=== PATIENT | male | born 1955 | race Hispanic/Latino ===

== ENCOUNTER → 2021-03-31 | Outpatient (CLI) | payer BC | END | disposition home or self-care (01) | LOC: OIH 15:42 | PROVIDERS: ATTEND Internal Medicine | DX: R07.9 Chest pain, unspecified (principal) | CPT/HCPCS: 71046 ==

== ENCOUNTER 2023-12-13 11:40 | Observation (INO) | payer BC, OTHER ==
[~2023-12-13] VITALS: Ht 165.1 cm; Wt 98.5 kg
[2023-12-13 12:58] LABS: BASOPHILS # (AUTO) 0.02 K/uL (0.00-0.20); BASOPHILS % (AUTO) 0.2 % (0.0-5.0); HEMATOCRIT 45.5 % (42-54); IMMATURE GRANULOCYTE ABSOLUTE 0.08 K/uL (0-1); LYMPHOCYTES # (AUTO) 1.6 K/uL (1.0-4.8); LYMPHOCYTES % (AUTO) 14.5 % (21.0-51.0); MEAN CORPUSCULAR HGB CONC 34.7 g/dL (32.0-36.0); MEAN CORPUSCULAR VOLUME 86.3 fL (79-99); MONOCYTES # (AUTO) 0.6 K/uL (0.1-1.0); MONOCYTES % (AUTO) 5.7 % (3.0-13.0); NEUTROPHILS # (AUTO) 8.8 K/uL (1.8-7.7); NEUTROPHILS % (AUTO) 78.9 % (40.0-77.0); PLATELET COUNT (AUTO) 276 K/uL (130-400); RED BLOOD CELL COUNT(AUTO) 5.27 MIL/uL (4.50-6.20); RED CELL DISTRIBUTION WIDTH 13.1 % (11.0-15.5); WHITE BLOOD COUNT (AUTO) 11.2 K/uL (4.8-10.8)
[2023-12-13 13:09] LABS: INR <= 0.93 (0.85-1.15); PROTHROMBIN TIME 10.8 SEC (9.6-11.6)
[2023-12-13 13:10] LABS: PARTIAL THROMBOPLASTIN TIME 27.6 SEC (26.3-35.5)
[2023-12-13 13:11] LABS: ALBUMIN 4.6 g/dL (3.5-5.0); BILIRUBIN,TOTAL 0.5 mg/dL (0.2-1.0); CREATININE 1.5 mg/dL (0.5-1.3); POTASSIUM 3.9 mmol/L (3.5-5.1); TOTAL PROTEIN, SERUM 9.3 g/dL (6.0-8.3)
[2023-12-13 13:14] LABS: APPEARANCE,URINE CLEAR (CLEAR); BILIRUBIN,URINE NEGATIVE (NEGATIVE); COLOR,URINE YELLOW (YELLOW); GLUCOSE, URINE (UA) >=1000 mg/dL (NEGATIVE); KETONES,URINE 15 mg/dL (NEGATIVE); LEUKOCYTE ESTERASE ,URINE NEGATIVE Leu/uL (NEGATIVE); NITRATE,URINE NEGATIVE (NEGATIVE); OCCULT BLOOD,URINE TRACE-LYSED (NEGATIVE); PH,URINE 5.5 (5.0-8.0); PROTEIN,URINE 100 mg/dL (NEGATIVE); UROBILINOGEN,URINE 0.2 mg/dL (0.2-1.0)
[2023-12-13 13:31] LABS: BACTERIA,URINE None Seen /HPF (None Seen); RBC,URINE 0-1 /HPF (0-1); WBC,URINE 0-1 /HPF (0-1)
[2023-12-13] MEDS: ONDANSETRON 4MG INJ IVP ONE (13:55)
[2023-12-13] MEDS: FAMOTIDINE 20MG VIAL IV ONE (13:55)
[2023-12-13] MEDS ORDERED: ACETAMINOPHEN 325 MG TAB PO PRN (15:00)
[2023-12-13] MEDS: DEXTROSE 5 %-0.45 % NACL 1,000 ML IV SCH (15:00)
[2023-12-13] MEDS ORDERED: ONDANSETRON 4MG INJ IVP PRN (15:00)
[2023-12-13] MEDS: CEFTRIAXONE 1G VIAL IVPB SCH (15:00)
[2023-12-13] MEDS: CEFTRIAXONE 1G VIAL IVPB ONE (15:28)
[2023-12-13] MEDS: INSULIN HUMULIN R 100 UNIT/ML 3ML SQ SCH (17:35)
[2023-12-13] MEDS ORDERED: GABA300C PO (20:32)
[2023-12-13] MEDS ORDERED: FAMO20TA8 PO (20:32)
[2023-12-13] MEDS ORDERED: ISOS20TA9 PO (20:32)
[2023-12-13] MEDS ORDERED: DAPA1TAB5 PO (20:32)
[2023-12-13] MEDS ORDERED: GEMF600T89 PO (20:32)
[2023-12-13] MEDS ORDERED: GLIM4TAB36 PO (20:32)
[2023-12-14 08:03] LABS: BASOPHILS # (AUTO) 0.04 K/uL (0.00-0.20); BASOPHILS % (AUTO) 0.5 % (0.0-5.0); EOSINOPHILS # (AUTO) 0.21 K/uL (0.00-0.70); EOSINOPHILS % (AUTO) 2.6 % (0.0-8.0); HEMATOCRIT 41.9 % (42-54); IMMATURE GRANULOCYTE ABSOLUTE 0.04 K/uL (0-1); LYMPHOCYTES # (AUTO) 2.8 K/uL (1.0-4.8); LYMPHOCYTES % (AUTO) 34.4 % (21.0-51.0); MEAN CORPUSCULAR HEMOGLOBIN 30.3 pg (27.0-33.0); MEAN CORPUSCULAR HGB CONC 33.4 g/dL (32.0-36.0); MEAN CORPUSCULAR VOLUME 90.7 fL (79-99); MONOCYTES # (AUTO) 0.6 K/uL (0.1-1.0); MONOCYTES % (AUTO) 7.4 % (3.0-13.0); NEUTROPHILS # (AUTO) 4.4 K/uL (1.8-7.7); NEUTROPHILS % (AUTO) 54.6 % (40.0-77.0); PLATELET COUNT (AUTO) 221 K/uL (130-400); RED BLOOD CELL COUNT(AUTO) 4.62 MIL/uL (4.50-6.20); WHITE BLOOD COUNT (AUTO) 8.1 K/uL (4.8-10.8)
[2023-12-14 08:24] LABS: ALBUMIN 3.7 g/dL (3.5-5.0); BILIRUBIN,TOTAL 0.5 mg/dL (0.2-1.0); CREATININE 1.1 mg/dL (0.5-1.3); MAGNESIUM 2.5 mg/dL (1.80-2.40); POTASSIUM 3.3 mmol/L (3.5-5.1); TOTAL PROTEIN, SERUM 7.4 g/dL (6.0-8.3)
[2023-12-14 09:45] VITALS: O2SAT 94
[2023-12-14 09:55] VITALS: BP 122/72; PULSE 73; RESP 17
[2023-12-14] MEDS ORDERED: ENAL-91 PO (09:59)
[2023-12-14] MEDS ORDERED: POTASSIUM CHLORIDE 10% ELIXIR 20 MEQ/15 ML UDCUP PO PRN (11:30)
[2023-12-14] MEDS ORDERED: POTASSIUM CHLORIDE 20MEQ/100ML 100 ML IV PRN (11:30)
[2023-12-14 11:49] VITALS: BP 119/63; PULSE 72; RESP 19
[2023-12-14] MEDS: KCL 20 MEQ ERTAB PO PRN (11:52)
[2023-12-14] MEDS: 1/2 NS 1000ML 1,000 ML IV SCH (11:55)
[2023-12-14 16:00] VITALS: BP 103/56; PULSE 67; RESP 17
[2023-12-14 20:00] VITALS: BP 120/53; PULSE 66; RESP 18
[2023-12-14 21:35] VITALS: O2SAT 94
[2023-12-15] VITALS: BP 153/62; PULSE 59; RESP 19
[2023-12-15 04:00] VITALS: BP 119/61; PULSE 53; RESP 16
[2023-12-15 06:04] LABS: BASOPHILS # (AUTO) 0.05 K/uL (0.00-0.20); BASOPHILS % (AUTO) 0.8 % (0.0-5.0); EOSINOPHILS # (AUTO) 0.21 K/uL (0.00-0.70); EOSINOPHILS % (AUTO) 3.4 % (0.0-8.0); HEMATOCRIT 38.4 % (42-54); IMMATURE GRANULOCYTE ABSOLUTE 0.02 K/uL (0-1); LYMPHOCYTES # (AUTO) 2.8 K/uL (1.0-4.8); LYMPHOCYTES % (AUTO) 44.4 % (21.0-51.0); MEAN CORPUSCULAR HEMOGLOBIN 29.8 pg (27.0-33.0); MEAN CORPUSCULAR HGB CONC 33.9 g/dL (32.0-36.0); MEAN CORPUSCULAR VOLUME 88.1 fL (79-99); MONOCYTES # (AUTO) 0.4 K/uL (0.1-1.0); MONOCYTES % (AUTO) 6.4 % (3.0-13.0); NEUTROPHILS # (AUTO) 2.8 K/uL (1.8-7.7); NEUTROPHILS % (AUTO) 44.7 % (40.0-77.0); PLATELET COUNT (AUTO) 210 K/uL (130-400); RED BLOOD CELL COUNT(AUTO) 4.36 MIL/uL (4.50-6.20); RED CELL DISTRIBUTION WIDTH 12.9 % (11.0-15.5); WHITE BLOOD COUNT (AUTO) 6.3 K/uL (4.8-10.8)
[2023-12-15 08:00] VITALS: BP 153/70; PULSE 66; RESP 17
[2023-12-15 08:12] VITALS: O2SAT 96
[2023-12-15] MEDS: FAMOTIDINE 20MG TAB PO SCH (08:12)
[2023-12-15] MEDS: GLIMEPIRIDE 2 MG TABLET PO SCH (08:12)
[2023-12-15] MEDS: ISOSORBIDE DINITRATE 20MG TAB PO SCH (08:12)
[2023-12-15] MEDS: GABAPENTIN 300 MG CAPSULE PO SCH (08:12)
[2023-12-15] MEDS: GEMFIBROZIL 600 MG TABLET PO SCH (08:12)
[2023-12-15] MEDS: ENALAPRIL MALEATE 10 MG TABLET PO SCH (08:13)
== END 2023-12-15 09:20 | disposition home or self-care (01) ==
LOC: EDH 11:40 → EDHIP 11:41 → UNDOADMOB 14:51 → EDHIP 12-14 07:42 → 3BH 12-14 07:42
PROVIDERS: ADMIT Internal Medicine; ATTEND Internal Medicine
DX: R10.9 Unspecified abdominal pain (principal); R11.2 Nausea with vomiting, unspecified; E86.0 Dehydration; E11.9 Type 2 diabetes mellitus without complications; I10 Essential (primary) hypertension; E78.5 Hyperlipidemia, unspecified; E87.20 Acidosis, unspecified; Z79.899 Other long term (current) drug therapy
CPT/HCPCS: 96365; 96366 ×2; 96375; 99285; 84484; 80053 ×2; 83690; 85025 ×3; 85610; 85730; 82948 ×7; 83605 ×2; 81001 ×2; 36415 ×3; 74176; 83735; G0378 ×42; J3490; J0696 ×2; J2405; J1815; J7042